=== PATIENT | female | born 1980 | race Caucasian/White ===

== ENCOUNTER 2019-11-17 17:56 | Inpatient (IN) ==
[2019-11-17] MEDS ORDERED: ONDANSETRON 4 MG/2 ML VIAL IV PRN (18:28)
[2019-11-17] MEDS ORDERED: BUTORPHANOL 2 MG/ML VIAL IV PRN (18:28)
[2019-11-17 18:55] LABS: Basophils # 0.1 10*3/uL (0.0-0.2); Basophils % 0.9 % (0.0-0.8); Eosinophils # 0.3 10*3/uL (0.0-0.87); Eosinophils % 2.1 % (0.00-10.9); Hematocrit 36.5 VOL% (35.7-47.0); Hemoglobin 12.2 GM/DL (12.0-16.0); Immature Granulocytes % 0.5 %; Immature Granulocytes Absolute 0.07 #; Lymphocytes # 2.4 10*3/uL (1.4-4.0); Lymphocytes % 16.2 % (21.3-54.2); Mean Corpuscular HGB Conc 33.4 GM/DL (32-36); Mean Corpuscular Volume 92.4 FL (87-102); Mean Platelet Volume 11.2 FL (9.6-12.0); Monocytes % 5.7 % (1.7-12.7); Neutrophils % 74.6 % (38.7-73.9); Platelet Count 265 T/CUMM (130-400); Red Blood Count 3.95 MC/CUMM (3.8-5.5); Red Cell Distribution Width 13.2 % (9.3-17.3); White Blood Count 14.6 T/CUMM (4-12)
[2019-11-17] MEDS ORDERED: NALOXONE 0.4 MG/ML VIAL IV PRN (19:41)
[2019-11-17] MEDS ORDERED: FAMOTIDINE 20 MG/2 ML VIAL IV ONE (19:41)
[2019-11-17] MEDS ORDERED: CITRIC ACID/SODIUM CITRATE 30 ML UDCUP PO ONE (19:41)
[2019-11-17] MEDS: LACTATED RINGERS 1,000 ML IV SCH ×3 (19:45→23:59)
[2019-11-17] MEDS: CLINDAMYCIN INJ 900 MG in PREMIX 1 EACH IV SCH (19:50)
[2019-11-17] MEDS ORDERED: ePHEDrine 50 MG/ML VIAL ONE (19:51)
[2019-11-17] MEDS ORDERED: fentaNYL 2 MCG/ROPIV 0.2% EPID 100 ML EPIDURAL SCH (20:00)
[2019-11-17 21:56] LABS: Apearance,Urine CLEAR (Clear); Bilirubin,Urine Negative (Negative); Blood, Urine Negative (Negative); Glucose,Urine (UA) Negative (Negative); Ketones,Urine Negative (Negative); Mucus,Urine Occasional /LPF (Occasional); Nitrite,Urine Negative (Negative); Protein,Urine Negative; Squamous Epithelial Cell,Urine Occasional /HPF (0-10); Urine Color Yellow (Yellow); Urine Urobilinogen < 2.0 EU/DL (0.2-1.0)
[2019-11-17] MEDS: ePHEDrine 50 MG/ML VIAL IV PRN ×2 (21:56→22:24)
[2019-11-18] MEDS: CLINDAMYCIN INJ 900 MG in PREMIX 1 EACH IV SCH (03:25)
[2019-11-18] MEDS ORDERED: METHYLERGONOVINE 0.2 MG/1 ML AMP ONE (04:12)
[2019-11-18] MEDS ORDERED: miSOPROStoL 200 MCG TABLET ONE (04:12)
[2019-11-18] MEDS ORDERED: TRANEXAMIC ACID 1,000 MG/10 ML VIAL ONE (04:12)
[2019-11-18] MEDS ORDERED: OXYTOCIN/LR 20 UNIT/1,000 ML BAG IV ONE ×2 (04:12→06:09)
[2019-11-18] MEDS ORDERED: SODIUM CHLORIDE 0.9% 0 ML IV ONE (04:13)
[2019-11-18] MEDS ORDERED: CARBOPROST TROMETHAMINE 250 MCG/ML AMP IM ONE (04:13)
[2019-11-18 06:01] LABS: Cord Arterial Blood HCO3 17.1 MMOL/L
[2019-11-18 06:05] LABS: Cord Venous Blood HCO3 18.6 MMOL/L; Cord Venous Blood PCO2 45.6 MMHG; Cord Venous Blood PO2 37.4
[2019-11-18] MEDS ORDERED: ONDANSETRON 4 MG/2 ML VIAL IV PRN (06:09)
[2019-11-18] MEDS ORDERED: LANOLIN 50% CREAM 0.3 OZ TUBE TOP PRN (06:09)
[2019-11-18] MEDS ORDERED: DIPH/TET/ACEL PERT BOOSTER VACCINE 0.5 ML VIAL IM ONE (06:09)
[2019-11-18] MEDS ORDERED: ACETAMINOPHEN 325 MG TABLET PO PRN (06:09)
[2019-11-18] MEDS ORDERED: BENZOCAINE 20%/MENTHOL 0.5% SPRAY 56 GM CAN TOP PRN (06:09)
[2019-11-18] MEDS ORDERED: HYDROCORTISONE 2.5% RECTAL CREAM 30 GM TUBE TOP PRN (06:09)
[2019-11-18] MEDS ORDERED: oxyCODONE/ACETAMINOPHEN 5-325 MG TABLET PO PRN (06:09)
[2019-11-18] MEDS ORDERED: WITCH HAZEL PADS 100/JAR TOP PRN (06:09)
[2019-11-18] MEDS ORDERED: MEASLES/MUMPS/RUBELLA VACCINE 0.5 ML VIAL SUBCUT ONE (06:09)
[2019-11-18] MEDS ORDERED: BISACODYL 10 MG SUPP RECTAL PRN (06:09)
[2019-11-18] MEDS ORDERED: RHO(D) IMMUNE GLOBULIN 300 MCG SYRINGE IM ONE (06:09)
[2019-11-18] MEDS: IBUPROFEN 800 MG TABLET PO PRN ×2 (08:05→17:53)
[2019-11-18] MEDS: DOCUSATE SODIUM 100 MG CAPSULE PO SCH ×2 (10:40→21:02)
[2019-11-19] MEDS: IBUPROFEN 800 MG TABLET PO PRN ×3 (00:06→19:08)
[2019-11-19 06:01] LABS: Basophils # 0.1 10*3/uL (0.0-0.2); Basophils % 0.8 % (0.0-0.8); Eosinophils # 0.6 10*3/uL (0.0-0.87); Eosinophils % 4.1 % (0.00-10.9); Hematocrit 32.4 VOL% (35.7-47.0); Immature Granulocytes % 0.5 %; Immature Granulocytes Absolute 0.08 #; Lymphocytes # 2.7 10*3/uL (1.4-4.0); Lymphocytes % 18.5 % (21.3-54.2); Mean Corpuscular Volume 92.8 FL (87-102); Mean Platelet Volume 11.8 FL (9.6-12.0); Monocytes % 4.6 % (1.7-12.7); Neutrophils % 71.5 % (38.7-73.9); Platelet Count 191 T/CUMM (130-400); Red Blood Count 3.49 MC/CUMM (3.8-5.5); Red Cell Distribution Width 13.5 % (9.3-17.3); White Blood Count 14.6 T/CUMM (4-12)
[2019-11-19] MEDS: DOCUSATE SODIUM 100 MG CAPSULE PO SCH ×2 (10:30→20:36)
[2019-11-19] MEDS: oxyCODONE/ACETAMINOPHEN 5-325 MG TABLET PO PRN ×2 (10:55→19:08)
[2019-11-20 09:08] VITALS: BP 130/64
[2019-11-20] MEDS: DOCUSATE SODIUM 100 MG CAPSULE PO SCH (09:36)
== END 2019-11-20 12:45 | disposition home or self-care (01) | DRG 807 ==
LOC: N.LDOUT 17:56 → N.LD 18:01 → N.OB 11-18 10:41
PROVIDERS: ADMIT Obstetrics & Gynecology; ATTEND Obstetrics & Gynecology